=== PATIENT | male | born 2000 | race American Indian/Alaskan Native ===

== ENCOUNTER 2021-05-30 10:24 | Emergency (ER) | payer SELFPAY ==
[2021-05-30 11:57] LABS: Bilirubin,Urine NEG (Negative); Blood,Urine NEG (Negative); Color,Urine Yellow (Yellow); Mucus,Urine FEW /HPF; Protein,Urine <15 mg/dL mg/dL (Negative); Urobilinogen,Urine < 2.0 mg/dL (<2.0)
--- NOTE | 2021-05-30 12:02 | Emergency Department Report ---
Chief Complaint: Urogenital-Male Stated Complaint: STD TESTING - [facility] History of Present Illness: 21-year-old -[place] male presents to the emergency room requesting STD testing. Patient denies any penile discharge, no testicular pain no testicular swelling no abdominal pain no nausea no vomiting no fever no chills. Patient states that he heard from his friends that the girl he was sleeping with unprotected could have something. - Exam Physical Exam: General: Awake, appropriately interactive, no acute distress. Neck: Supple. Full range of motion intact. Cardiovascular: Normal peripheral perfusion. Pulmonary: No respiratory distress. Patient is speaking normally without use of accessory muscles. Skin: No apparent rashes or lesions. Neurological: No facial asymmetry. Speech is clear. Follows commands. Patient is alert and oriented. Musculoskeletal: Full range of motion, no crepitus. Able to bear weight and ambulate without difficulty. Distal neurovascular and motor/sensory function is intact. Psych: Cooperative. Appropriate mood and affect. MSE screening note: Focused history and physical exam performed. Due to findings the following was ordered: 21-year-old -[place] male presents to the emergency room requesting STD testing. Patient denies any penile discharge, no testicular pain no testicular swelling no abdominal pain no nausea no vomiting no fever no chills. Patient states that he heard from his friends that the girl he was sleeping with unprotected could have something. Recommend following up at [facility]. ED Disposition for MSE Disposition: DC-01 TO HOME OR SELFCARE Is pt being admited?: No Does the pt Need Aspirin: No Condition: Stable Additional Instructions: Recommend to follow-up at [facility] department urgent care primary care. Referrals: [facility] [Outside] - 3-5 Days [facility] [Outside] - 3-5 Days [facility] [Outside] - 3-5 Days
== END 2021-05-30 12:07 | disposition home or self-care (01) ==
LOC: ED 10:24
DX: Z11.3 Encounter for screening for infections with a predominantly sexual mode of transmission (principal)
CPT/HCPCS: 81001; 87086; 99283